=== PATIENT | male | born 1975 | race Caucasian/White ===

== ENCOUNTER → 2025-05-17 15:36 | Outpatient (REF) | payer OTHER, SELFPAY | LOC: PAVMRI 15:36 | PROVIDERS: ATTENDING PHYSICIAN Physician Assistant Medical | DX: G43.109 Migraine with aura, not intractable, without status migrainosus (principal) | CPT/HCPCS: 70551 ==

== ENCOUNTER → 2025-05-28 14:24 | Outpatient (REF) | payer OTHER, SELFPAY | LOC: DHSLP 14:24 | PROVIDERS: ATTENDING PHYSICIAN Internal Medicine Critical Care Medicine; FAMILY PHYSICIAN Family Medicine | DX: G47.30 Sleep apnea, unspecified (principal); R06.83 Snoring | CPT/HCPCS: 95800 ==